=== PATIENT | female | born 1995 ===

== ENCOUNTER 2023-02-21 21:20 | Emergency (ER) | payer OTHER, MEDICAID, SELFPAY ==
[2023-02-21 21:29] VITALS: BP 144/98; PULSE 76; RESP 16; TEMP 36.4; O2SAT 100; BMI 28.3
== END 2023-02-21 22:30 | disposition left against medical advice (07) ==
PROVIDERS: Emergency Provider Emergency Medicine
CPT/HCPCS: 99281